=== PATIENT | female | born 1995 | race Caucasian/White ===

== ENCOUNTER 2019-11-30 17:00 | Inpatient (IN) | payer MEDICAID ==
[~2019-11-30] VITALS: Ht 172.7 cm; Wt 70.8 kg
[2019-11-30 17:51] LABS: BASOPHILS % (AUTO) 0.8 % (0.0-2.0); EOSINOPHILS % (AUTO) 2.7 % (1.0-6.0); HEMATOCRIT 36.2 % (36-46); HEMOGLOBIN 11.9 g/dL (12.0-16.0); LYMPHOCYTES # (AUTO) 2.1 K/uL (1.0-4.8); LYMPHOCYTES % (AUTO) 37.8 % (22.0-44.0); MEAN CORPUSCULAR HEMOGLOBIN 27.2 pg (26.0-34.0); MEAN CORPUSCULAR HGB CONC 32.8 G/dL (31.0-37.0); MEAN CORPUSCULAR VOLUME 83 fL (80-100); MONOCYTES # (AUTO) 0.3 K/uL (0.1-1.0); MONOCYTES % (AUTO) 6.2 % (2.0-9.0); NEUTROPHILS # (AUTO) 2.9 K/uL (1.8-7.7); NEUTROPHILS % (AUTO) 52.5 % (40.0-70.0); PLATELET COUNT (AUTO) 305 K/uL (150-450); RED BLOOD CELL COUNT(AUTO) 4.37 MIL/uL (4.00-5.20); RED CELL DISTRIBUTION WIDTH 16.5 % (11.5-14.5)
[2019-11-30 18:09] LABS: ANION GAP 8 mmol/L (8-16); CALCIUM, TOTAL 9.4 mg/dL (8.8-10.5); CARBON DIOXIDE 28 mmol/L (22-29); CHLORIDE 105 mmol/L (98-107); CREATININE 0.82 mg/dL (0.60-1.30); GLOMERULAR FILTR. RATE CALC > 60 mL/min (>60); GLUCOSE,RANDOM 98 mg/dL (70-110); POTASSIUM 3.8 mmol/L (3.5-5.1); SODIUM SERUM 141 mmol/L (136-145); UREA NITROGEN, BLOOD 5 mg/dL (7-18)
[2019-11-30 18:18] LABS: ALANINE AMINOTRANSFERASE 22 U/L (12-78); ALBUMIN 4.1 g/dL (3.4-5.0); ALKALINE PHOSPHATASE 44 U/L (46-116); ASPARTATE AMINOTRANSFERASE 19 U/L (15-37); BILIRUBIN,TOTAL 0.4 mg/dL (0.1-1.0); HCG,QUANTITATIVE < 1 mIU/mL (0-6); TOTAL PROTEIN, SERUM 7.8 g/dL (6.4-8.2)
[2019-11-30 18:24] LABS: APPEARANCE,URINE CLEAR (CLEAR); BILIRUBIN,URINE NEGATIVE (NEGATIVE); GLUCOSE, URINE (UA) NEGATIVE (NEGATIVE); KETONES,URINE NEGATIVE (NEGATIVE); LEUKOCYTE ESTERASE ,URINE NEGATIVE (NEGATIVE); NITRATE,URINE NEGATIVE (NEGATIVE); OCCULT BLOOD,URINE NEGATIVE (NEGATIVE); PROTEIN,URINE NEGATIVE (NEGATIVE); UROBILINOGEN,URINE 0.2 mg/dL (<=1.0)
[2019-11-30 18:27] LABS: AMPHET/METH SCREEN,URINE NEGATIVE (NEGATIVE); BARBITURATE SCREEN, URINE NEGATIVE (NEGATIVE); BENZODIAZEPINES SCREEN,URINE NEGATIVE (NEGATIVE); CANNABINOID SCREEN,URINE NEGATIVE (NEGATIVE); COCAINE SCREEN,URINE NEGATIVE (NEGATIVE); METHADONE SCREEN, URINE NEGATIVE (NEGATIVE); OPIATE SCREEN,URINE NEGATIVE (NEGATIVE); PHENCYCLIDINE SCREEN,URINE NEGATIVE (NEGATIVE)
[2019-11-30 18:31] LABS: BACTERIA,URINE Moderate /HPF (None Seen); RBC,URINE None Seen /HPF (0-2); SQUAMOUS EPITHELIAL CELL,UR Few /LPF (None Seen); WBC,URINE 0-2 /HPF (0-5)
[2019-11-30] MEDS ORDERED: HydrOXYzine PAMOATE 50 MG CAPSULE PO ONE (19:00)
[2019-11-30] MEDS ORDERED: ZOLPIDEM TARTRATE 10 MG TABLET PO PRN (19:15)
[2019-11-30] MEDS ORDERED: HALOPERIDOL 5 MG TABLET PO PRN (19:15)
[2019-11-30 22:52] VITALS: BP 112/76
[2019-12-01 05:59] VITALS: BP 105/74
[2019-12-01 07:36] LABS: CHOL/HDL RATIO 2.5 (3.9-5.7)
[2019-12-01 09:31] VITALS: BP 118/75
[2019-12-01 09:45] VITALS: BP 127/78
[2019-12-01] MEDS: RisperiDONE 2 MG TABLET PO SCH ×2 (11:57→20:09)
[2019-12-01] MEDS ORDERED: CloNIDine HCL 0.1 MG TABLET PO PRN (13:15)
[2019-12-01] MEDS ORDERED: MAGNESIUM HYDROXIDE SUSPENSION 30 ML UDCUP PO PRN (13:15)
[2019-12-01] MEDS ORDERED: GuaiFENesin/D-METHORPHAN [SUGAR-FREE] 200-20MG/10 ML SYRUP UDCUP PO PRN (13:15)
[2019-12-01] MEDS ORDERED: PETROLATUM,WHITE 28 GM JELLY TP PRN (13:15)
[2019-12-01] MEDS ORDERED: MAG HYDROX/AL HYDROX/SIMETH ES 30 ML SUSPENSION UDCUP PO PRN (13:15)
[2019-12-01] MEDS ORDERED: ALBUTEROL SULFATE HFA 90 MCG/PUFF 8 GM INHALER IH PRN (13:15)
[2019-12-01] MEDS ORDERED: DOCUSATE SODIUM 100 MG CAPSULE PO PRN (13:15)
[2019-12-01] MEDS ORDERED: NICOTINE 14 MG/24 HOUR PATCH TD PRN (13:15)
[2019-12-01] MEDS ORDERED: LOPERAMIDE HCL 2 MG CAPSULE PO PRN (13:15)
[2019-12-01] MEDS ORDERED: ONDANSETRON HCL 4 MG TABLET PO PRN (13:15)
[2019-12-01 16:18] VITALS: BP 106/85
[2019-12-01 16:30] VITALS: BP 106/85
[2019-12-01] MEDS: LORazepam 2 MG TABLET PO PRN (17:24)
[2019-12-02 05:13] VITALS: BP 102/62
[2019-12-02 08:05] VITALS: BP 105/70
[2019-12-02] MEDS: RisperiDONE 2 MG TABLET PO SCH ×2 (08:32→21:36)
[2019-12-02] MEDS: LORazepam 2 MG TABLET PO PRN ×2 (10:40→17:42)
[2019-12-02 16:22] VITALS: BP 141/74
[2019-12-03 05:03] VITALS: BP 122/70
[2019-12-03 08:14] VITALS: BP 110/71
[2019-12-03] MEDS: RisperiDONE 2 MG TABLET PO SCH ×2 (09:07→20:41)
[2019-12-03] MEDS: LORazepam 2 MG TABLET PO PRN ×2 (10:05→20:51)
[2019-12-03 17:01] VITALS: BP 119/70
[2019-12-04 00:18] VITALS: BP 102/51
[2019-12-04 08:12] VITALS: BP 134/74
[2019-12-04] MEDS: RisperiDONE 2 MG TABLET PO SCH ×2 (08:39→20:42)
[2019-12-04] MEDS: LORazepam 2 MG TABLET PO PRN ×2 (08:39→12:57)
[2019-12-04 16:11] VITALS: BP 127/70
[2019-12-05 00:59] VITALS: BP 100/48
[2019-12-05 08:46] VITALS: BP 129/77
[2019-12-05] MEDS: LORazepam 2 MG TABLET PO PRN ×2 (08:52→17:07)
[2019-12-05] MEDS: RisperiDONE 2 MG TABLET PO SCH ×2 (08:52→21:03)
[2019-12-05 10:37] VITALS: BP 128/76
[2019-12-05] MEDS: ACETAMINOPHEN 325 MG TABLET PO PRN (10:37)
[2019-12-05 16:38] VITALS: BP 129/68
[2019-12-06 08:08] VITALS: BP 103/67
[2019-12-06] MEDS: RisperiDONE 2 MG TABLET PO SCH ×2 (08:55→20:19)
[2019-12-06] MEDS: ACETAMINOPHEN 325 MG TABLET PO PRN (09:45)
[2019-12-06 10:55] VITALS: BP 121/85
[2019-12-06] MEDS: LORazepam 2 MG TABLET PO PRN ×2 (10:55→17:04)
[2019-12-06 16:00] VITALS: BP 107/76
[2019-12-07 00:39] VITALS: BP 105/66
[2019-12-07] MEDS: RisperiDONE 2 MG TABLET PO SCH ×2 (08:13→20:13)
[2019-12-07] MEDS: LORazepam 2 MG TABLET PO PRN ×2 (08:13→14:55)
[2019-12-07 08:19] VITALS: BP 101/60
[2019-12-07 14:55] VITALS: BP 112/64
[2019-12-07] MEDS: ACETAMINOPHEN 325 MG TABLET PO PRN (14:56)
[2019-12-07 18:54] VITALS: BP 118/79
[2019-12-08 05:00] VITALS: BP 103/60
[2019-12-08] MEDS: LORazepam 2 MG TABLET PO PRN ×2 (08:02→13:51)
[2019-12-08] MEDS: RisperiDONE 2 MG TABLET PO SCH ×2 (08:02→20:30)
[2019-12-08 08:03] VITALS: BP 113/87
[2019-12-08 13:51] VITALS: BP 116/84
[2019-12-08] MEDS: ACETAMINOPHEN 325 MG TABLET PO PRN (13:51)
[2019-12-08 16:09] VITALS: BP 109/80
[2019-12-09 00:05] VITALS: BP 107/80
[2019-12-09 08:48] VITALS: BP 103/58
[2019-12-09] MEDS: RisperiDONE 2 MG TABLET PO SCH ×2 (09:06→21:40)
[2019-12-09] MEDS: LORazepam 2 MG TABLET PO PRN (10:12)
[2019-12-09 16:24] VITALS: BP 112/74
[2019-12-10 00:04] VITALS: BP 109/70
[2019-12-10] MEDS: RisperiDONE 2 MG TABLET PO SCH ×2 (08:26→20:22)
[2019-12-10] MEDS: ACETAMINOPHEN 325 MG TABLET PO PRN (08:26)
[2019-12-10 08:57] VITALS: BP 105/69
[2019-12-10] MEDS: LORazepam 2 MG TABLET PO PRN (12:34)
[2019-12-10] MEDS: DiphenhydrAMINE HCL 25 MG CAPSULE PO PRN ×2 (13:27→15:52)
[2019-12-10] MEDS: IBUPROFEN 400 MG TABLET PO PRN ×2 (16:19)
[2019-12-10 16:24] VITALS: BP 132/79
[2019-12-11 05:36] VITALS: BP 111/67
[2019-12-11] MEDS: RisperiDONE 2 MG TABLET PO SCH ×2 (08:26→20:18)
[2019-12-11 09:24] VITALS: BP 123/73
[2019-12-11 16:21] VITALS: BP 118/70
[2019-12-12 06:23] VITALS: BP 117/73
[2019-12-12 08:01] VITALS: BP 121/71
[2019-12-12] MEDS: RisperiDONE 2 MG TABLET PO SCH ×2 (08:17→19:55)
[2019-12-12] MEDS ORDERED: PALIPERIDONE PALMITATE 234 MG/1.5 ML SYRINGE IM SCH (10:00)
[2019-12-12] MEDS: DiphenhydrAMINE HCL 25 MG CAPSULE PO PRN (11:52)
[2019-12-12] MEDS: LORazepam 2 MG TABLET PO PRN (13:39)
[2019-12-12] MEDS ORDERED: RISP2 PO (15:01)
[2019-12-12 16:10] VITALS: BP 118/76
[2019-12-13 00:19] VITALS: BP 110/70
[2019-12-13] MEDS: RisperiDONE 2 MG TABLET PO SCH (08:21)
[2019-12-13 08:42] VITALS: BP 109/63
[2019-12-13] MEDS ORDERED: PALI234D IM (11:24)
[2019-12-13] MEDS ORDERED: RISP2 PO (11:24)
== END 2019-12-13 13:03 | disposition home or self-care (01) | DRG 750 ==
LOC: EMS 17:02 → B2S 20:00
DX: F20.0 Paranoid schizophrenia (principal); R45.851 Suicidal ideations; Z59.0 Homelessness; D64.9 Anemia, unspecified; F10.10 Alcohol abuse, uncomplicated; F12.90 Cannabis use, unspecified, uncomplicated; F31.9 Bipolar disorder, unspecified; G44.209 Tension-type headache, unspecified, not intractable; K59.00 Constipation, unspecified; Z79.899 Other long term (current) drug therapy; Z87.891 Personal history of nicotine dependence; Z91.5 Personal history of self-harm
CPT/HCPCS: 87086; G0480